=== PATIENT | female | born 1940 | race Caucasian/White ===

== ENCOUNTER 2023-08-08 18:29 | Emergency (ER) | payer MEDICARE, OTHER, SELFPAY ==
[2023-08-08] VITALS (13 sets, daily range): BP systolic 117–160; BP diastolic 57–85; PULSE 92–109; RESP 18–23; TEMP 36.5; O2SAT 96–99; BMI 28.5
--- NOTE | 2023-08-08 18:44 | ECG_ITS ---
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
--- NOTE | 2023-08-08 18:50 | XR_ITS ---
The [address] [address] Patient Name: MICHELLE FUENTES MRN: [id number] date: 1940 Sex: F Assigned Patient Location: ER Current Patient Location: ER Accession/Order Number: [id number] Exam Date: 08/08/2023 18:55 Report Date: 08/08/2023 19:53 At the request of: JOANNE LAKE Procedure: XR chest 2V EXAM: XR chest 2V HISTORY: syncope COMPARISON: None. TECHNIQUE: Upright PA and lateral chest x-ray FINDINGS: The heart is not enlarged and the vasculature is not distended. 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 No acute infiltrate, effusion or pneumothorax is identified. Some degenerative changes are seen in the spine.. XR/XR chest 2V IMPRESSION: No acute infiltrate or evidence of cardiac decompensation. Direct comparison with a previous study may be helpful in determining the chronicity of these findings. Electronically authenticated by: DOUG MONSON Date: 08/08/2023 19:53
[2023-08-08 19:12] LABS: Basophils Percent Auto 0.4 % (0.2-2.0); Eosinophils Absolute Auto 0.2 10^3/uL (0.0-0.7); Eosinophils Percent Auto 1.6 % (0.9-7.0); Hematocrit 38.1 % (36.0-48.0); Hemoglobin 12.5 g/dL (12.0-16.0); Immature Granulocytes Abs Auto 0.03 10^3/uL (0.00-0.03); Immature Granulocytes Pct Auto 0.3 % (0.0-0.5); Lymphocytes Absolute Auto 1.9 10^3/uL (1.2-3.8); Lymphocytes Percent Auto 19.7 % (20.5-60.0); Mean Corpuscular HGB Conc 32.8 g/dL (29.9-35.2); Mean Corpuscular Volume 94.5 fL (81.0-99.0); Mean Platelet Volume 10.6 fL (9.5-13.5); Monocytes Absolute Auto 0.9 10^3/uL (0.3-0.8); Monocytes Percent Auto 9.4 % (1.7-12.0); Neutrophils Absolute Auto 6.5 10^3/uL (1.4-6.5); Neutrophils Percent Auto 68.6 % (43.0-75.0); Platelet Count 250 10^3/uL (150-450); Red Blood Count 4.03 10^6/uL (4.20-5.40); Red Cell Distribution Width 11.9 % (11.0-15.0); White Blood Count 9.5 10^3/uL (4.0-11.0)
--- NOTE | 2023-08-08 19:22 | CT_ITS ---
The [address] [address] Patient Name: MICHELLE FUENTES MRN: [id number] date: 1940 Sex: F Assigned Patient Location: ER Current Patient Location: ER Accession/Order Number: [id number] Exam Date: 08/08/2023 19:48 Report Date: 08/08/2023 20:13 At the request of: SAJI YOUNG Procedure: CT head/brain wo con EXAM: CT head/brain wo con CLINICAL INDICATION: altered MS TECHNIQUE: Unenhanced computerized tomography of the head was performed. Automated dose reduction technique was employed. COMPARISON: None. FINDINGS: The ventricles are normal in size, configuration, and position for age. There is no intra- or extra-axial mass, hemorrhage, or fluid collection. No areas of abnormal mass effect or attenuation are noted. There is moderate subcortical, deep, and periventricular white matter low-attenuation, compatible with changes of chronic small vessel ischemic disease. Visualized paranasal sinuses are free of mucosal disease. No depressed calvarial fracture. CT/CT head/brain wo con IMPRESSION: No acute intracranial abnormality noted. Electronically authenticated by: SHERYL SHORE Date: 08/08/2023 20:13
--- NOTE | 2023-08-08 19:24 | ED_ITS ---
HPI - Altered Mental Status General Chief Complaint: Altered Mental Status Stated Complaint: Confusion Time Seen by Provider: 08/08/23 18:44 Source: patient and EMR Mode of arrival: ambulance Limitations: no limitations History of Present Illness HPI narrative: 83-year-old female presents to the emergency department via EMS with daughters with report of change in mental status. Patient had been at a home over the past 2 hours, admits that she may have been a little more active than normal when she became lightheaded. Daughter observed patient in chair, zoned out, somewhat mumbled speech, but able to tell where she was at. Episode lasted less than 10 minutes. Patient was back to baseline at the time of EMS arrival. Daughters did not notice any facial drooping, drooling, focal weakness. Patient does have seizure history, has not missed any of her antiseizure medicines, has not had a seizure in many years. No reported seizure-like activity. Patient denies having any chest pain, shortness of breath. Quality:?as above Severity:?moderate Timing:?as above, resolved Context: Normal setting and activity? Modifying factors:?none Associated symptoms: as above Related Data Home Medications ?Medication ?Instructions ?Recorded ?Confirmed alendronate 70 mg tablet 70 mg PO QWEEK 08/08/23 08/08/23 aspirin 81 mg tablet,delayed 81 mg PO DAILY 08/08/23 08/08/23 release (Adult Low Dose Aspirin) atorvastatin 20 mg tablet 20 mg PO DAILY 08/08/23 08/08/23 carbidopa 25 mg-levodopa 100 mg 1 tab PO DAILY 08/08/23 08/08/23 tablet furosemide 40 mg tablet 40 mg PO .a.m. 08/08/23 08/08/23 isosorbide mononitrate 60 mg 60 mg PO DAILY 08/08/23 08/08/23 tablet,extended release 24 hr lamotrigine 100 mg tablet 25 mg PO Q12H 08/08/23 08/08/23 levothyroxine 100 mcg tablet 100 mcg PO DAILY 08/08/23 08/08/23 metoprolol succinate 50 mg 50 mg PO Q12H 08/08/23 08/08/23 tablet,extended release 24 hr nitroglycerin 0.4 mg sublingual 0.4 mg sublingual Q5M 08/08/23 08/08/23 tablet pantoprazole 40 mg tablet,delayed 40 mg PO DAILY 08/08/23 08/08/23 release valsartan 40 mg tablet 40 mg PO DAILY 08/08/23 08/08/23 Allergies Allergy/AdvReac Type Severity Reaction Status Date / Time No Known Drug Allergies Allergy Verified 08/08/23 18:39 Review of Systems ROS Narrative CONST: Denies fever, chills HENT: Denies congestion, sore throat EYES: Denies eye redness, visual disturbance RESP: Denies cough, shortness of breath CV: Denies chest pain, palpitations GI: Denies abd pain, nausea, vomiting : Denies dysuria, flank pain MS: Denies back pain, myalgias SKIN: Denies color change, rash NEURO: + lightheaded, syncope. Denies facial asymmetry, headaches, numbness, seizures, tremors, weakness PSYCHIATRIC: Denies confusion, agitation Exam Narrative Exam Narrative: Vital signs reviewed Nurses notes noted CONST: Nontoxic, well appearing, well nourished, in no distress.? No diaphoresis.?? HENT: normocephalic, atraumatic, dry mucous membrane, no abnormalities of the nose noted, hearing normal, no facial droop EYES: PERRL, EOMI.? normal appearing conjunctiva, no apparent discharge bilat NECK: normal appearance CV: normal rate, regular rhythm, no murmur RESP: normal effort, speaking in complete sentences. Lung sounds clear and equal bilat.? No wheezes, rales, rhonchi GI: soft, nontender, no distension : no CVA tenderness MS: no edema, injury SKIN: no pallor NEURO: A&Ox 3, GCS = 15, no sensory, motor deficits.? CN II - XII normal as test ed. NIH = 0.? No facial asymmetry. Speech clear. No aphasia. Wrist Closer, push, pull are strong and equal bilaterally.? No abnormalities noted with coordination PSYCH: normal mood, affect.? Normal speech.? Memory intact Constitutional Vital Signs, click to edit/add: Last Vital Signs Temp 97.7 F 08/08/23 18:31 Pulse 98 H 08/08/23 20:10 Resp 23 08/08/23 20:10 BP 160/84 H 08/08/23 20:05 Pulse Ox 97 08/08/23 20:05 O2 Del Method Room Air 08/08/23 19:25 Course Reevaluation(s) Reevaluation #1: States she is feeling, better. Discussed with patient and daughter results, plan. Discussed with patient admission. She states she feels well enough to go home. Emphasized importance of follow-up and repeat creatinine. Informed patient that we do not have creatinines between 2017 and today. Prior creatinine from 2017 looked up in old system. So, there is no way of knowing whether the creatinine elevation is new or has been progressive since then. Patient will push fluids and call her doctor in [place] for repeat labs and follow-up. Time: 21:19 Reevaluation #2: Nursing ambulated patient. Patient asymptomatic, denies any lightheadedness. Time: 21:50 Vital Signs Vital signs: Vital Signs Temperature 97.7 F 08/08/23 18:31 Pulse Rate 104 H 08/08/23 18:31 Respiratory Rate 18 08/08/23 18:31 Blood Pressure 117/57 08/08/23 18:31 Pulse Oximetry 97 08/08/23 18:31 Oxygen Delivery Method Room Air 08/08/23 18:31 Temperature 97.7 F 08/08/23 18:31 Pulse Rate 98 H 08/08/23 20:10 Respiratory Rate 23 08/08/23 20:10 Blood Pressure 160/84 H 08/08/23 20:05 Pulse Oximetry 97 08/08/23 20:05 Oxygen Delivery Method Room Air 08/08/23 19:25 MDM - Altered Mental Status MDM Narrative Medical decision making narrative: Pleasant 83-year-old female who presented to the emergency department with daughters, via EMS from home for change in mental status, syncopal event. Patient remembers having some lightheadedness prior to the event. She thinks she may have overdone it today. Daughter was at her side during this, states she was speaking and muffled voice. Displayed no seizure-like activity. Symptoms resolved after about 10 minutes. On arrival, patient asymptomatic. On arrival afebrile, vital signs are stable On exam, nontoxic, well-appearing patient in no distress. Mucous membranes appear little dry, lips. Heart regular rate and rhythm. Lung sounds clear and equal bilaterally. No focal deficits on head to toe neurologic exam. EKG reveals no acute changes. Labs reveal elevated BUN and creatinine of 25 and 1.89, respectively. In the old system, last creatinine was 2017 and was within normal limits. Otherwise, no leukocytosis, anemia, thrombocytopenia, electrolyte imbalance. LFTs unremarkable. High-sensitivity troponin was 15.4, under the upper limit of 51.3. She denies having any chest pain. Urinalysis showed no evidence of infection. Chest x-ray imaging, per radiologist reveals no acute infiltrate or evidence of cardiac decompensation. CT head imaging, per radiologist reveals no acute intracranial abnormality noted. Patient's blood pressure did decrease when she went from lying to standing position. She stated she was a little lightheaded this, along with elevated creatinine raise suspicion for dehydration. She was given a liter of normal saline during ED course with subjective improvement. After fluids, patient was ambulated. Lightheadedness has completely resolved, patient feeling well. Offered admission, but patient states she is feeling well enough to go home. Advised to push fluids. Stressed importance of follow up, repeat creatinine level Disposition ? The patient was discharged in stable and improved condition Plan: Patient will be discharged to home. Condition at time of disposition: stable ? Advised to follow up with primary provider. Advised to return for any worsening and/or development of new, concerning signs or symptoms PLEASE NOTE: Portions of the medical record may have been produced using electronic rail switchman and may contain errors with respect to translation of words which may not have been identified prior to finalization of the chart. Lab Data Attestation: I reviewed the patient's lab results. Labs: Lab Results 08/08/23 08/08/23 Range/Units 18:40 20:12 WBC 9.5 (4.0-11.0) 10^3/uL RBC 4.03 L (4.20-5.40) 10^6/uL Hgb 12.5 (12.0-16.0) g/dL Hct 38.1 (36.0-48.0) % MCV 94.5 (81.0-99.0) fL MCH 31.0 (26.7-34.0) pg MCHC 32.8 (29.9-35.2) g/dL RDW 11.9 (11.0-15.0) % Plt Count 250 (150-450) 10^3/uL MPV 10.6 (9.5-13.5) fL Neut % (Auto) 68.6 (43.0-75.0) % Lymph % (Auto) 19.7 L (20.5-60.0) % [place] % (Auto) 9.4 (1.7-12.0) % Eos % (Auto) 1.6 (0.9-7.0) % Baso % (Auto) 0.4 (0.2-2.0) % Neut # (Auto) 6.5 (1.4-6.5) 10^3/uL Lymph # (Auto) 1.9 (1.2-3.8) 10^3/uL Pender # (Auto) 0.9 H (0.3-0.8) 10^3/uL Eos # (Auto) 0.2 (0.0-0.7) 10^3/uL Baso # (Auto) 0.0 (0.0-0.1) 10^3/uL Abs Immat Gran (auto) 0.03 (0.00-0.03) 10^3/uL Imm/Tot Granulo (auto) 0.3 (0.0-0.5) % Sodium 134 L (136-145) mmol/L Potassium 3.7 (3.5-5.1) mmol/L Chloride 97 L (98-107) mmol/L Carbon Dioxide 30.0 (21.0-32.0) mmol/L Anion Gap 10.7 BUN 25.0 H (7.0-18.0) mg/dL Creatinine 1.89 H (0.55-1.02) mg/dL Est GFR ( Amer) 31 L (>=60) Est GFR (Non-Af Amer) 25 L (>=60) BUN/Creatinine Ratio 13.2 Glucose 153 H (74-106) mg/dL Calcium 10.1 (8.5-10.1) mg/dL Magnesium 2.3 (1.8-2.4) mg/dL Total Bilirubin 0.5 (0.2-1.0) mg/dL AST 15 (15-37) U/L ALT 8 L (14-59) U/L Alkaline Phosphatase 76 (46-116) U/L Troponin I High Sens 15.4 (4.0-51.3) pg/mL Total Protein 7.4 (6.4-8.2) g/dL Albumin 3.3 L (3.4-5.0) g/dL Globulin 4.1 g/dL Albumin/Globulin Ratio 0.8 Urine Color Lt. yellow (YELLOW) Urine Clarity Clear (CLEAR) Urine pH 7.0 (5.0-9.0) Ur Specific [place] 1.010 (1.005-1.025) Urine Protein Negative (NEG/TRACE) mg/dL Urine Glucose (UA) Negative (NEGATIVE) mg/dL Urine Ketones Negative (NEGATIVE) mg/dL Urine Occult Blood Negative (NEGATIVE) Urine Nitrite Negative (NEGATIVE) Urine Bilirubin Negative (NEGATIVE) Urine Urobilinogen 0.2 (0.2-1.0) EU/dL Ur Leukocyte Esterase Negative (NEGATIVE) Imaging Data CXR, CT head: Attestation: I have reviewed the pertinent imaging results. Radiologist's impression: ITS Impressions Chest X-Ray 08/08/23 18:50 IMPRESSION: No acute infiltrate or evidence of cardiac decompensation. Direct comparison with a previous study may be helpful in determining the chronicity of these findings. Electronically authenticated by: DOUG MONSON Date: 08/08/2023 19:[address] 08/08/23 19:22 IMPRESSION: No acute intracranial abnormality noted. Electronically authenticated by: SHERYL SHORE Date: 08/08/2023 20:13 ECG Data Attestation: I personally reviewed and interpreted this ECG as follows: (EKG performed at 1849 hrs. reveals sinus rhythm at 93 bpm. No ischemia, elevation, ectopy noted. Nonspecific ST changes, diffuse. No other additional acute changes are noted. Improved compared to EKG from 2017) Discharge Plan Discharge Stand Alone Forms: Portal Instructions Chief Complaint: Altered Mental Status Clinical Impression: Acute dehydration, Creatinine elevation, Syncope Patient Disposition: Home, Self-Care Time of Disposition Decision: 21:28 Condition: Good Mode of Transportation: Private Vehicle Prescriptions / Home Meds: No Action furosemide 40 mg tablet 40 mg PO .a.m. atorvastatin 20 mg tablet 20 mg PO DAILY metoprolol succinate 50 mg tablet extended release 24 hr 50 mg PO Q12H alendronate 70 mg tablet 70 mg PO QWEEK levothyroxine 100 mcg tablet 100 mcg PO DAILY isosorbide mononitrate 60 mg tablet extended release 24 hr 60 mg PO DAILY pantoprazole 40 mg tablet,delayed release (DR/EC) 40 mg PO DAILY Hold Instructions: per pt carbidopa-levodopa 25-100 mg tablet 1 tab PO DAILY lamotrigine 100 mg tablet 25 mg PO Q12H valsartan 40 mg tablet 40 mg PO DAILY aspirin [Adult Low Dose Aspirin] 81 mg tablet,delayed release (DR/EC) 81 mg PO DAILY nitroglycerin 0.4 mg tablet, sublingual 0.4 mg sublingual Q5M Rx Instructions: do not exceed 3 doses per episode Print Language: Romanian Instructions: Dehydration (ED), Syncope (ED) Additional Instructions: It is very important you follow up with your doctor regarding your creatinine level. Return here any time if you are feeling worse. Referrals: KARLENE MARTINEZ [Primary Care Provider] - 1 week Discharge Date/Time: 08/08/23 22:11
[2023-08-08 19:29] LABS: Anion Gap 10.7
[2023-08-08 19:30] LABS: Alanine Aminotransferase 8 U/L (14-59); Albumin Globulin Ratio 0.8; Albumin Level 3.3 g/dL (3.4-5.0); Alkaline Phosphatase 76 U/L (46-116); Aspartate Amino Transferase 15 U/L (15-37); BUN Creatinine Ratio 13.2; Bilirubin Total 0.5 mg/dL (0.2-1.0); Calcium 10.1 mg/dL (8.5-10.1); Chloride 97 mmol/L (98-107); Estimated GFR (African America 31 (>=60); Estimated GFR (Non-African Ame 25 (>=60); Globulin 4.1 g/dL; Glucose 153 mg/dL (74-106); Potassium 3.7 mmol/L (3.5-5.1); Sodium 134 mmol/L (136-145); Total Protein 7.4 g/dL (6.4-8.2); Troponin I High Sensitivity 15.4 pg/mL (4.0-51.3)
[2023-08-08] MEDS: 0.9 % SODIUM CHLORIDE 500 ML IV ×2 (19:31→20:44)
[2023-08-08 19:41] LABS: Magnesium 2.3 mg/dL (1.8-2.4)
[2023-08-08 20:21] LABS: Bilirubin Urine NEGATIVE (NEGATIVE); Blood Urine NEGATIVE (NEGATIVE); Clarity Urine CLEAR (CLEAR); Color Urine LT. YELLOW (YELLOW); Glucose Urine UA NEGATIVE (NEGATIVE); Ketones Urine NEGATIVE (NEGATIVE); Leukocyte Esterase Urine NEGATIVE (NEGATIVE); Nitrite Urine NEGATIVE (NEGATIVE); Protein Urine NEGATIVE (NEG/TRACE); Urine Microscopic Indicated NO; Urobilinogen Urine 0.2 EU/dL (0.2-1.0)
== END 2023-08-08 22:11 | disposition home or self-care (01) ==
PROVIDERS: Emergency Medicine; Physician Assistant; Emergency Provider Internal Medicine; PCP Family Medicine
DX: E86.0 Dehydration (principal); R55 Syncope and collapse; R94.4 Abnormal results of kidney function studies; Z79.899 Other long term (current) drug therapy; Z79.82 Long term (current) use of aspirin; Z79.890 Hormone replacement therapy
CPT/HCPCS: 36415; 70450; 71046; 80053; 81003; 83735; 84484; 85025; 93005; 99285